=== PATIENT | female | born 1980 | race Caucasian/White ===

== ENCOUNTER 2022-01-07 14:35 | Emergency (ER) | payer SELFPAY ==
[~2022-01-07] VITALS: Ht 160 cm; Wt 67.3 kg
[2022-01-07 15:35] LABS: URINE BILIRUBIN - DIPSTICK NEGATIVE (NEGATIVE); URINE BLOOD DIPSTICK NEGATIVE (NEGATIVE); URINE COLOR YELLOW; URINE GLUCOSE - DIPSTICK NEGATIVE (NEGATIVE); URINE KETONE NEGATIVE (NEGATIVE); URINE LEUK ESTERASE NEGATIVE (NEGATIVE); URINE PROTEIN - DIPSTICK NEGATIVE (NEG-TRACE); URINE SPECIFIC GRAVITY 1.025; URINE UROBILINOGEN - DIPSTICK 0.2 E.U./dL (0.2)
[2022-01-07 15:36] LABS: URINE NITRITE - DIPSTICK NEGATIVE (Negative)
[2022-01-07] MEDS ORDERED: METRONIDAZOLE500 MG PO (16:44)
[2022-01-07 17:08] VITALS: BP 134/90
== END 2022-01-07 17:09 | disposition home or self-care (01) | DRG 761 ==
LOC: ED 14:35
PROVIDERS: Nurse Practitioner
DX: N89.8 Other specified noninflammatory disorders of vagina (principal)